=== PATIENT | female | born 1985 | race Caucasian/White ===

== ENCOUNTER 2020-07-15 17:17 | Emergency (ER) | payer SELFPAY ==
[~2020-07-15] VITALS: Ht 167.6 cm; Wt 59.0 kg
[2020-07-15 17:17] VITALS: BP 116/59
--- NOTE | 2020-07-15 17:17 | NUR ---
ED Nurse Note: Patient RIKY [id number] from home c/o left side flank pain onset last night. Has hx of kidney stones. Pt is diaphoretic and crying in pain. Denies dysuria and hematuria. Pt AAOx4, verbally responsive. No SOB, on room air. ERMD at bedside.
[2020-07-15] MEDS ORDERED: Ketorolac 30mg Inj ONE (17:23)
--- NOTE | 2020-07-15 17:24 | Emergency Room Report ---
History of Present Illness General Chief Complaint: Back Pain-No Injury Source: Patient Present Illness HPI Disclaimer: Please note that this report is being documented using DRAGON technology. This can lead to erroneous entry secondary to incorrect interpretation by the dictating instrument. HPI: 35-year-old female with history of kidney stones presents for evaluation of flank pain. She arrives by EMS complaining of 24 hours left-sided flank pain that does not radiate. Pain is 10/10. Denies pain in the abdomen, pelvis, nausea, vomiting diarrhea. Reports some diaphoresis as the pain comes. LMP was 1 week ago. Denies vaginal discharge or any further vaginal bleeding. Denies dysuria or hematuria. Prior history of left-sided kidney stones that passed on their own. No prior stent or lithotripsy. Denies fever, chills. PMH: Kidney stones PSH: Reviewed Allergies: Denied Social Hx: Denied Allergies: Coded Allergies: No Known Allergies (Unverified , 07/15/20) COVID-19 Screening Contact w/high risk pt: No Experienced COVID-19 symptoms?: No COVID-19 Testing performed LAUNCH MANAGER: No Patient History Last Menstrual Period: 06/29/20 Now: No Review of Systems All Other Systems: negative except mentioned in HPI Physical Exam Vital Signs Date Time Temp Pulse Resp B/P (MAP) Pulse Ox O2 Delivery O2 Flow Rate FiO2 07/15/20 17:13 98.4 98 19 98 Room Air General: Awake and alert, appears uncomfortable HEENT: NC/AT. EOMI. Cardiovascular: Tachycardic. S1 and S2 normal. No murmur appreciated Resp: Normal work of breathing. No cough, wheezing or crackles appreciated Abdomen: Abdomen is soft, nondistended. Nontender Skin: Intact. Mildly diaphoretic. Bruising around the face and neck MSK: Normal tone and bulk. Moving all extremities. No obvious deformity. Neuro: Awake and alert. Mentating appropriately. Back: Left-sided CVA and lower flank tenderness. Negative on right. Medical Decision Making Diagnostic Impression: Primary Impression: Elevated lipase Additional Impressions: Flank pain Renal stones ER Course 35-year-old female history of kidney stones presents for evaluation of 24 hours left-sided flank pain. Differential includes was not limited to nephrolithiasis, ovarian cyst, ovarian mass, topic , UTI, pyelonephritis, STI, PID, pancreatitis, gastritis among others. Patient also has some bruising around the face and neck area which she states is from microneedling (cosmetic procedure). Will start on IV fluids, antiemetics, pain control. Labs were obtained showing no renal dysfunction, slightly elevated lipase just above the upper limits of normal and blood in the urine without evidence of infection. Patient originally refused CT requesting ultrasound first. Ultrasound was obtained showing no evidence of hydronephrosis. She then consented to a CT scan which showed Bilateral kidney stones but no obstruction urethra stones. Likely she passed the stone already. Her pain significantly improved after receiving Toradol. She will be put on Flomax and treated with further analgesics. She declined narcotics. We will follow-up on an outpatient basis regarding the elevated lipase levels though she states she has had "stomach problems" in the past and intermittent pain in the left upper quadrant there. She denies alcohol abuse or history of gallstones. Currently pain-free. Instructed to return with new or worsening symptoms. She understands and agrees with this treatment plan. Laboratory Tests Test 07/15/20 17:25 07/15/20 17:45 White Blood Count 10.6 K/UL (4.8-10.8) Red Blood Count 4.39 M/UL (4.20-5.40) Hemoglobin 14.4 G/DL (12.0-16.0) Hematocrit 42.8 % (37.0-47.0) Mean Corpuscular Volume 98 FL (80-99) Mean Corpuscular Hemoglobin 32.9 PG (27.0-31.0) H Mean Corpuscular Hemoglobin Concent 33.7 G/DL (32.0-36.0) Red Cell Distribution Width 11.7 % (11.6-14.8) Platelet Count 254 K/UL (150-450) Mean Platelet Volume 6.6 FL (6.5-10.1) Neutrophils (%) (Auto) 67.2 % (45.0-75.0) Lymphocytes (%) (Auto) 22.0 % (20.0-45.0) Monocytes (%) (Auto) 9.7 % (1.0-10.0) Eosinophils (%) (Auto) 0.5 % (0.0-3.0) Basophils (%) (Auto) 0.6 % (0.0-2.0) Sodium Level 139 MMOL/L (136-145) Potassium Level 3.9 MMOL/L (3.5-5.1) Chloride Level 103 MMOL/L (98-107) Carbon Dioxide Level 27 MMOL/L (21-32) Anion Gap 9 mmol/L (5-15) Blood Urea Nitrogen 13 mg/dL (7-18) Creatinine 1.0 MG/DL (0.55-1.30) Estimated Glomerular Filtration Rate > 60 mL/min (>60) Glucose Level 94 MG/DL (74-106) Calcium Level 9.6 MG/DL (8.5-10.1) Total Bilirubin 0.3 MG/DL (0.2-1.0) Aspartate Amino Transferase (AST) 9 U/L (15-37) L Alanine Aminotransferase (ALT) 12 U/L (12-78) Alkaline Phosphatase 70 U/L (46-116) Total Protein 8.0 G/DL (6.4-8.2) Albumin 4.2 G/DL (3.4-5.0) Globulin 3.8 g/dL Albumin/Globulin Ratio 1.1 (1.0-2.7) Lipase 401 U/L (73-393) H Urine Color Yellow Urine Appearance Clear Urine pH 5 (4.5-8.0) Urine Specific [place] 1.030 (1.005-1.035) Urine Protein Negative (NEGATIVE) Urine Glucose (UA) Negative (NEGATIVE) Urine Ketones 1+ (NEGATIVE) H Urine Blood 3+ (NEGATIVE) H Urine Nitrite Negative (NEGATIVE) Urine Bilirubin Negative (NEGATIVE) Urine Urobilinogen Normal MG/DL (0.0-1.0) Urine Leukocyte Esterase Negative (NEGATIVE) Urine RBC 2-4 /HPF (0 - 2) H Urine WBC 0-2 /HPF (0 - 2) Urine Squamous Epithelial Cells Few /LPF (NONE/OCC) Urine Bacteria Few /HPF (NONE) Urine HCG, Qualitative Negative (NEGATIVE) CT/MRI/US Diagnostic Results CT/MRI/US Diagnostic Results : Impression US IMPRESSION: No hydronephrosis Dictated By: Yadi Bernabe MD Electronically Signed By:Yadi Bernabe MD Signed Date/Time07/15/201947 CC: Lobo nAdrade MD CT IMPRESSION: 1. Bilateral nephrolithiasis. No obstructing ureteral stone. 2. Appendix is poorly visualized and assessed on this exam. Dictated By: Yadi Bernabe MD Electronically Signed By:Yadi Bernabe MD Signed Date/Time07/15/202033 CC: Lobo Andrade MD Last Vital Signs Date Time Temp Pulse Resp B/P (MAP) Pulse Ox O2 Delivery O2 Flow Rate FiO2 07/15/20 17:13 98.4 98 19 98 Room Air Disposition: HOME, SELF-CARE Condition: Improved Scripts Ibuprofen* (MOTRIN*) 600 Mg Tablet 600 MG ORAL Q6H PRN for For Pain, #30 TAB 0 Refills Prov: Lobo Andrade MD 07/15/20 Tamsulosin HCl (Flomax) 0.4 Mg Cap.er.24h 0.4 MG ORAL DAILY for BPH for 5 Days, #5 CAP Prov: Lobo Andrade MD 07/15/20 Lobo Andrade MD Jul 15, 2020 17:24
--- NOTE | 2020-07-15 17:25 | NUR ---
ED Nurse Note: IV line established. Blood specimen collected, sent to lab.
[2020-07-15] MEDS ORDERED: Ketorolac 30mg Inj IV ONE (17:30)
[2020-07-15 17:43] LABS: BASOPHILS % (AUTO) 0.6 % (0.0-2.0); EOSINOPHILS % (AUTO) 0.5 % (0.0-3.0); HEMATOCRIT 42.8 % (37.0-47.0); HEMOGLOBIN 14.4 G/DL (12.0-16.0); MEAN CORPUSCULAR VOLUME 98 FL (80-99); MONOCYTES % (AUTO) 9.7 % (1.0-10.0); NEUTROPHILS % (AUTO) 67.2 % (45.0-75.0); PLATELET COUNT 254 K/UL (150-450); RED BLOOD COUNT 4.39 M/UL (4.20-5.40); RED CELL DISTRIBUTION WIDTH 11.7 % (11.6-14.8); WHITE BLOOD COUNT 10.6 K/UL (4.8-10.8)
[2020-07-15 17:53] LABS: ANION GAP 9 mmol/L (5-15); BLOOD UREA NITROGEN 13 mg/dL (7-18); CALCIUM 9.6 MG/DL (8.5-10.1); CARBON DIOXIDE 27 MMOL/L (21-32); CHLORIDE 103 MMOL/L (98-107); POTASSIUM 3.9 MMOL/L (3.5-5.1); SODIUM 139 MMOL/L (136-145)
[2020-07-15 17:57] LABS: ALANINE AMINOTRANSFERASE 12 U/L (12-78); ALBUMIN 4.2 G/DL (3.4-5.0); ALBUMIN/GLOBULIN RATIO 1.1 (1.0-2.7); ALKALINE PHOSPHATASE 70 U/L (46-116); ASPARTATE AMINO TRANSFERASE 9 U/L (15-37); BILIRUBIN,TOTAL 0.3 MG/DL (0.2-1.0)
[2020-07-15 18:17] LABS: APPEARANCE,URINE CLEAR; BILIRUBIN, URINE NEGATIVE (NEGATIVE); GLUCOSE, URINE (UA) NEGATIVE (NEGATIVE); KETONES,URINE 1+ (NEGATIVE); LEUKOCYTE ESTERASE ,URINE NEGATIVE (NEGATIVE); NITRITE,URINE NEGATIVE (NEGATIVE); PH,URINE 5 (4.5-8.0); PROTEIN,URINE NEGATIVE (NEGATIVE); UROBILINOGEN,URINE NORMAL MG/DL (0.0-1.0)
[2020-07-15 18:19] LABS: COLOR,URINE YELLOW
--- NOTE | 2020-07-15 18:30 | NUR ---
ED Nurse Note: Pt refused CT scan, ERMD notified, explained risk and benefits, verbally understood.
--- NOTE | 2020-07-15 18:46 | NUR ---
ED Nurse Note: US at bedside.
--- NOTE | 2020-07-15 19:14 | NUR ---
HAND-OFF: Report given to Tre RN.
--- NOTE | 2020-07-15 19:15 | NUR ---
ED Nurse Note: Report received from TIM PARRISH
--- NOTE | 2020-07-15 19:45 | NUR ---
ED Nurse Note: MANFRED done
--- NOTE | 2020-07-15 19:49 | Diagnostic Imaging Report ---
EXAM: US Retroperitoneal Limited, Renal CLINICAL HISTORY: FLANK TECHNIQUE: Real-time limited ultrasound of the retroperitoneum with image documentation. COMPARISON: No relevant prior studies available. FINDINGS: Right kidney: Measures 11.9 x 4.2 x 6.6 cm. No hydronephrosis. Left kidney: Measures 10.7 x 4.8 x 5.3 cm. No hydronephrosis. Prevoid bladder volume 230 cc. IMPRESSION: No hydronephrosis
--- NOTE | 2020-07-15 20:20 | NUR ---
ED Nurse Note: CT scan done
--- NOTE | 2020-07-15 20:35 | Diagnostic Imaging Report ---
EXAM: CT Abdomen and Pelvis Without Intravenous Contrast CLINICAL HISTORY: FLANK TECHNIQUE: Axial computed tomography images of the abdomen and pelvis without intravenous contrast. CTDI is 3.80 mGy and DLP is 201.50 mGy-cm. One or more of the following dose reduction techniques were used: automated exposure control, adjustment of the mA and/or kV according to patient size, use of iterative reconstruction technique. COMPARISON: No relevant prior studies available. FINDINGS: Lung bases: Unremarkable. ABDOMEN: Liver: Small low-attenuation foci in the liver Gallbladder and bile ducts: No calcified stones. No ductal dilation. Pancreas: Unremarkable. Spleen: Unremarkable. Adrenals: Unremarkable. Kidneys and ureters: Bilateral nephrolithiasis. No obstructing ureteral stone. Stomach and bowel: No umesh mural thickening. Nonobstructive bowel gas pattern. PELVIS: Appendix: Appendix is poorly visualized and assessed on this exam. Bladder: Unremarkable. Reproductive: IUD ABDOMEN and PELVIS: Intraperitoneal space: Unremarkable. Bones/joints: No acute fracture. Soft tissues: Unremarkable. Vasculature: Unremarkable. No abdominal aortic aneurysm. Lymph nodes: No enlarged lymph nodes. IMPRESSION: 1. Bilateral nephrolithiasis. No obstructing ureteral stone. 2. Appendix is poorly visualized and assessed on this exam.
[2020-07-15] MEDS ORDERED: IBUPROFEN600 M1 ORAL (20:48)
[2020-07-15] MEDS ORDERED: FLOMAX0.4 MG ORAL (20:48)
--- NOTE | 2020-07-15 20:52 | NUR ---
ER DISCHARGE NOTE: Patient is cleared to be discharged per ERMD, pt is aox4, on room air, with stable vital signs. pt was given dc and prescription instructions, pt was able to verbalize understanding, pt id band removed. pt is able to ambulate with steady gait. pt took all belongings.
[2020-07-15 20:53] VITALS: BP 116/59
== END 2020-07-15 21:00 | disposition home or self-care (01) ==
LOC: EDBD 17:17 → EMR 17:30
DX: N20.0 Calculus of kidney (principal); R74.01 Elevation of levels of liver transaminase levels; R10.9 Unspecified abdominal pain
CPT/HCPCS: 36415; 74176; 76770; 80053; 81003; 81025; 83690; 85025; 96361; 96374; 99284; J1885; J7030